=== PATIENT | male | born 2005 | race Caucasian/White ===

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

== ENCOUNTER 2024-05-27 17:01 | Emergency (ER) | payer SELFPAY ==
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
[2024-05-27 17:27] VITALS: BP 128/65; PULSE 72; RESP 16; TEMP 37.3; O2SAT 99; BMI 27.9
[2024-05-27] MEDS: ibuprofen 800 mg tablet PO (18:00)
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
[2024-05-27 18:48] VITALS: BP 128/68; PULSE 72; O2SAT 99
== END 2024-05-27 18:48 | disposition home or self-care (01) ==
PROVIDERS: Emergency Provider Physician Assistant; PCP Pediatrics Adolescent Medicine
DX: S80.02XA Contusion of left knee, initial encounter (principal); V89.2XXA Person injured in unspecified motor-vehicle accident, traffic, initial encounter
CPT/HCPCS: 73562; 99283